=== PATIENT | female | born 1995 | race Two or more races ===

== ENCOUNTER 2018-07-10 15:40 | Emergency (ER) | payer OTHER ==
[2018-07-10] MEDS ORDERED: ONDANSETRON 4 MG/2 ML VIAL IVP ONE (18:31)
[2018-07-10] MEDS ORDERED: NS 1,000 ML IV ONE (18:31)
[2018-07-10] MEDS ORDERED: fentaNYL 100 MCG/2 ML INJ IVP ONE (18:31)
--- NOTE | 2018-07-10 18:33 | EDPHY ---
General Time Seen by Provider: 07/10/18 17:37 Narrative: CLINICAL IMPRESSION: Constipation, left lower quadrant abdominal pain ASSESSMENT/PLAN: 23-year-old female presents to the emergency department with 4 days of left lower quadrant abdominal pain associated with mild nausea. No associated fever , chills, vomiting, diarrhea, bloody stools. Patient saw JOSIAH Moody, today and reportedly had a normal in office pelvic ultrasound with no evidence of ovarian cyst. Urine culture is pending with their office. She reports having a normal pelvic exam, STD testing and normal wet prep. Repeat urine testing here shows no evidence of UTI, pyuria or bacteriuria. Urine is negative. Patient has a Mirena and oral contraceptive protection and was told by ultrasound that her Mirena is in place. Labs reassuring with no leukocytosis, renal insufficiency, electrolyte imbalance, or metabolic disturbance. Patient was tender on exam with rebound pain but no guarding or rigidity. Options discussed and she has elected to pursue CT scan. This was read by Radiology showing no abnormal findings aside from constipation. Pain had improved with a single dose of IV analgesics. Patient was encouraged to try [id number] laxatives and dietary adjustment, follow up with primary care, warning signs return to ED sooner outlined and discharge. DIFFERENTIAL DX: Abdominal pain includes but not limited to urinary tract infection, pyelonephritis, infection, ectopic , salpingitis, TOA, ovarian torsion, ovarian cyst, endometriosis, uterine fibroids, acute appendicitis, acute diverticulitis, small-bowel obstruction, constipation ED PROCEDURES: See lab and/or imaging results below ED COURSE: 8:00 p.m.: Discussed radiology results with Dr. Sim. No abnormal findings aside from constipation. Labs reassuring. Patient informed of results. CHIEF COMPLAINT: Left lower quadrant abdominal pain HPI: 23-year-old female presents to the emergency department with complaints of left lower quadrant abdominal pain for the last 4 days. Patient has a history of a left ovarian cyst, culture primary care earlier this week and was able to see OBGYN, Dr. Moreno, today. Patient reports she had a normal in office ultrasound that did not show evidence of an ovarian cyst. She reports having a normal pelvic exam, STD tests are pending, and reports having a normal wet prep. She is monogamous with her partner of 4 years and denies STD risk. She has a both a Mirena in place and takes oral contraceptives. She reports some nausea but no associated vomiting, fever, chills. She has had a decreased appetite. She reports normal bowel movements, no diarrhea or constipation. She has never had a pain like this before. Pain does radiate into the anterior thigh left thigh and slightly into the flank. She does report some dysuria. She reports her OBGYN had normal urine studies. PAST MEDICAL HISTORY: Migraines, neuropathic pain See nurse/triage notes for additional history if applicable Pertinent Past Surgical History: None reported Family History: Noncontributory Social History: Monogamous in a relationship with her boyfriend, otherwise healthy REVIEW OF SYSTEMS: All other systems negative Constitutional: No fever, no chills, positive for appetite change. Cardiovascular: No chest pain, no palpitations. Respiratory: No cough, no shortness of breath. Gastrointestinal: Positive for abdominal pain, positive for nausea, no vomiting , diarrhea.] Genitourinary: No hematuria, positive for dysuria, mild left-sided flank pain, pelvic pain Musculoskeletal: No back pain, joint swelling, joint pain, myalgias. Skin: No rashes, color change. PHYSICAL EXAM: General Appearance: Alert, oriented, appropriate, cooperative, appears mildly uncomfortable, well hydrated, non-toxic appearing, VSS, no hypoxia. HEENT: Oropharynx clear is no erythema or exudates, no tonsillar hypertrophy or asymmetry. Dentition without abnormality. Respiratory: There are no retractions, lungs are clear to auscultation. Cardiac: Regular rate and rhythm, no murmurs or gallops. Gastrointestinal: Abdomen is soft, tender to left lower quadrant with rebound pain, no rigidity or guarding, bowel sounds normal, no masses/hernia, no focal peritoneal findings. Neurological: [ Alert and oriented x 3, CN 2-12 grossly intact Skin: Warm, dry, no rashes, no nodules on palpation. Musculoskeletal: Extremities are symmetrical, full range of motion, no tenderness, deformity, swelling, or erythema. Psychiatric: Patient is oriented X 3, there is no agitation. MEDICAL DECISION MAKING: Patient was seen independently. Secondary supervising physician at time of evaluation was Dr. Cornell. Diagnosis: Constipation, left lower quadrant pain. New, requires workup Summary: See Assessment and Plan for summary of ED visit Clinical lab tests: ordered / reviewed. Independent visualization of images, tracing, or specimens: Yes. Decision to obtain medical records or history from someone other than the patient: No Review / Summarize previous medical records: None available from OBGYN office Discussed patient with another provider: Radiologist Patient Progress: Improved. - Diagnostics Imaging Results: Imaging Impressions Abdomen CT 07/10/18 18:30 Impression: Constipation. Otherwise negative. Results discussed with Ifeanyi Huerta. General information for patients regarding this examination can be found at [email or web address]. If you have questions or comments about this report, please contact me at [phone] (hospital) or [phone] (cell). - History Smoking Status: Never smoked - Objective Vital Signs: Initial Vital Signs Temperature (C) 36.9 C 07/10/18 15:55 Heart Rate 97 07/10/18 15:55 Respiratory Rate 20 07/10/18 15:55 Blood Pressure 145/98 H 07/10/18 15:55 O2 Sat (%) 100 07/10/18 15:55 O2 Delivery Mode Room Air O2 (L/minute) 2 Allergies/Adverse Reactions: No Known Allergies Allergy (Unverified 07/10/18 15:59) Home Medications: Medication Instructions Recorded Botox 07/10/18 Horizant 07/10/18 Isibloom 28 Day Tablet 07/10/18 Laboratory Results: Laboratory Results 07/10/18 18:55 07/10/18 18:55 07/10/18 07/10/18 07/10/18 18:55 18:55 17:42 WBC 6.64 10^3/uL 10^3/uL (3.80-9.50) RBC 4.95 10^6/uL 10^6/uL (4.18-5.33) Hgb 14.9 g/dL g/dL (12.6-16.3) Hct 42.6 % % (38.0-47.0) MCV 86.1 fL fL (81.5-99.8) MCH 30.1 pg pg (27.9-34.1) MCHC 35.0 g/dL g/dL (32.4-36.7) RDW 12.2 % % (11.5-15.2) Plt Count 270 10^3/uL 10^3/uL (150-400) MPV 9.7 fL fL (8.7-11.7) Neut % (Auto) 49.7 % % (39.3-74.2) Lymph % (Auto) 38.3 % % (15.0-45.0) Elk % (Auto) 6.8 % % (4.5-13.0) Eos % (Auto) 4.5 % % (0.6-7.6) Baso % (Auto) 0.5 % % (0.3-1.7) Nucleat RBC Rel Count 0.0 % % (0.0-0.2) Absolute Neuts (auto) 3.31 10^3/uL 10^3/uL (1.70-6.50) Absolute Lymphs (auto) 2.54 10^3/uL 10^3/uL (1.00-3.00) Absolute Monos (auto) 0.45 10^3/uL 10^3/uL (0.30-0.80) Absolute Eos (auto) 0.30 10^3/uL 10^3/uL (0.03-0.40) Absolute Basos (auto) 0.03 10^3/uL 10^3/uL (0.02-0.10) Absolute Nucleated RBC 0.00 10^3/uL 10^3/uL (0-0.01) Immature Gran % 0.2 % % (0.0-1.1) Immature Gran # 0.01 10^3/uL 10^3/uL (0.00-0.10) Sodium 136 mEq/L mEq/L (135-145) Potassium 4.2 mEq/L mEq/L (3.5-5.2) Chloride 107 mEq/L mEq/L (97-110) Carbon Dioxide 20 mEq/l L mEq/l (22-31) Anion Gap 9 mEq/L mEq/L (6-14) BUN 9 mg/dL mg/dL (7-23) Creatinine 0.6 mg/dL mg/dL (0.6-1.0) Estimated GFR > 60 Glucose 98 mg/dL mg/dL (70-100) Calcium 9.1 mg/dL mg/dL (8.5-10.4) Urine Color Urine Appearance Urine pH Ur Specific [place] Urine Protein Urine Ketones Urine Blood Urine Nitrate Urine Bilirubin Urine Urobilinogen Ur Leukocyte Esterase Urine RBC Urine WBC Ur Epithelial Cells Urine Mucus Urine Glucose Urine Test NEGATIVE 07/10/18 17:30 WBC RBC Hgb Hct MCV MCH MCHC RDW Plt Count MPV Neut % (Auto) Lymph % (Auto) Elk % (Auto) Eos % (Auto) Baso % (Auto) Nucleat RBC Rel Count Absolute Neuts (auto) Absolute Lymphs (auto) Absolute Monos (auto) Absolute Eos (auto) Absolute Basos (auto) Absolute Nucleated RBC Immature Gran % Immature Gran # Sodium Potassium Chloride Carbon Dioxide Anion Gap BUN Creatinine Estimated GFR Glucose Calcium Urine Color PALE YELLOW Urine Appearance CLEAR Urine pH 6.0 (5.0-7.5) Ur Specific [place] 1.010 (1.002-1.030) Urine Protein NEGATIVE (NEGATIVE) Urine Ketones NEGATIVE (NEGATIVE) Urine Blood NEGATIVE (NEGATIVE) Urine Nitrate NEGATIVE (NEGATIVE) Urine Bilirubin NEGATIVE (NEGATIVE) Urine Urobilinogen NEGATIVE EU EU (0.2-1.0) Ur Leukocyte Esterase NEGATIVE (NEGATIVE) Urine RBC 1-3 /hpf /hpf (0-3) Urine WBC 1-3 /hpf /hpf (0-3) Ur Epithelial Cells TRACE /lpf /lpf (NONE-1+) Urine Mucus TRACE /lpf /lpf (NONE-1+) Urine Glucose NEGATIVE (NEGATIVE) Urine Test Medications Given: Discontinued Medications Fentanyl (Sublimaze) 50 mcg IVP EDNOW ONE Stop: 07/10/18 18:32 Last Admin: 07/10/18 18:53 Dose: 50 mcg Sodium Chloride (Ns) 1,000 mls @ 0 mls/hr IV EDNOW ONE; Wide Open PRN Reason: Protocol Stop: 07/10/18 18:32 Last Admin: 07/10/18 18:52 Dose: 1,000 mls Ondansetron HCl (Zofran) 4 mg IVP EDNOW ONE Stop: 07/10/18 18:32 Last Admin: 07/10/18 18:53 Dose: 4 mg Departure - Departure Disposition: Home, Routine, Self-Care Clinical Impression: Constipation Qualifiers: Constipation type: other constipation type Qualified Code(s): K59.09 - Other constipation Condition: Fair Instructions: Constipation (ED) Additional Instructions: DISCHARGE INSTRUCTIONS FROM YOUR DOCTOR Thank you for visiting our emergency department today. Please keep in mind that discharge from the emergency department does not mean that there is nothing wrong - it simply means that we have not identified an emergency condition that requires further evaluation or treatment in the hospital. You should always plan to follow up with primary care for re-evaluation of your condition in the next 2-3 days. If you have been referred to a specialist, please call as soon as possible (today or tomorrow) to schedule your follow up appointment at the appropriate time. I WAS UNABLE TO ACCESS THE ULTRASOUND RESULTS YOU HAD BY OBGYN. I WAS ALSO UNABLE TO ACCESS ANY WET PREP RESULTS. URINE CULTURE IS PENDING. NO EVIDENCE OF URINARY TRACT INFECTION TODAY. YOU ARE NOT . LAB WORK IS REASSURING. NORMAL INFECTION FIGHTING COUNT, NORMAL ELECTROLYTES, NORMAL KIDNEY FUNCTIONS. OUR RADIOLOGIST READ THE CT SCAN OF HER ABDOMEN NEGATIVE FOR ANYTHING OTHER THAN CONSTIPATION. PLEASE CONSIDER USING DIETARY CHANGES, INCREASED WATER, FRUITS, FIBERS. IF YOU WISH TO TRY [id number] MEDICATIONS, PLEASE USE MIRALAX OR DULCOLAX. RETURN TO THE EMERGENCY DEPARTMENT FOR PERSISTENT OR WORSENING ABDOMINAL PAIN, INABILITY TO HAVE BOWEL MOVEMENT, FEVERS, VOMITING, BLOODY STOOLS, OR ANY OTHER CONCERN. People present with illnesses and injuries in different ways, and it is always possible that we have missed something. You may always return for re-evaluation if symptoms worsen or if they are not improving or if you develop new/different symptoms. Again, thank you for choosing our emergency department. We hope that you feel better. Referrals: ERVIN DOMINGUEZ [Other] - 2-3 days without fail
[2018-07-10] MEDS ORDERED: IOHEXOL 300 mgI/ML (OMNIPAQUE) 150 ML BTL IV ONE (18:56)
[2018-07-10 19:10] LABS: PLATELET COUNT 270 10^3/uL (150-400)
[2018-07-10 20:41] VITALS: BP 125/77
== END 2018-07-10 20:37 | disposition home or self-care (01) ==
DX: K59.09 Other constipation (principal); E86.9 Volume depletion, unspecified
CPT/HCPCS: 96374; J2405; J3010; Q9967

== ENCOUNTER → 2018-10-18 | Outpatient (CLI) | payer OTHER | LOC: FIMAGING 10:55 → EDSTATUS 10:56 → FIMAGING 10:56 | PROVIDERS: ATTEND Family Medicine | DX: N83.292 Other ovarian cyst, left side (principal); Z97.5 Presence of (intrauterine) contraceptive device ==